=== PATIENT | male | born 1965 | race Caucasian/White ===

== ENCOUNTER → 2017-02-14 | Outpatient (CLI) | payer BC ==
--- NOTE | ~2017-02-14 | CT57 ---
[facility] A Service of [facility] RADIOLOGY TEXT RESULTS PATIENT: RESHMA LOAIZA LOCATION: [facility] : 67 UNIT #: [id number] AGE: [address]: Sukumar Perla MD SEX: M ORDER DR: [id number] [facility] [address] [place], [place] [address] [id number] O MR#: [id number] Acc #: [id number] NAME: RESHMA LOAIZA : 1965 SEX: M STUDY DATE/TIME: 02/14/2017 08:59 UNIT: [facility] ROOM: STUDY DESCRIPTION: CT Chest Wo Cont Attending Physician: Sukumar Perla M.D. Referring Physician: Sukumar Perla M.D. Ordering Physician: Sukumar Perla M.D. Primary Care Physician: Sukumar Perla M.D. MEDICAL IMAGING REPORT This report is preliminary unless electronic signature is present EXAM CT chest without contrast 02/14/2017 0859 hours CLINICAL HISTORY 51-year-old man with diagnosis of sarcoidosis made of biopsy of several years ago. FOLLOWUP Pulmonary changes of sarcoidosis. No new chest complaints today. COMPARISON 08/21/2009 CT scan of the chest. TECHNIQUE Helical noncontrasted images were obtained from the thoracic inlet through the adrenal glands. Sagittal and coronal reconstructions were performed. Total exam DLP 570 mGy-cm. This CT exam was performed with one or more of the following radiation dose reduction techniques: Automatic exposure control, adjustment of mA and/or kV according to patient size, and iterative reconstruction. FINDINGS Images through the thoracic inlet demonstrate no thyroid lesion or supraclavicular adenopathy. Images through the chest demonstrate fusiform aneurysmal dilatation of the ascending aorta measuring up to 4.7 cm previously 4.1 cm 08/21/2009. There is no pathologic, mediastinal, hilar, or axillary adenopathy. The lungs demonstrate nonspecific linear areas of scarring in the upper lobes, mid lung region, and lung bases. These areas are significantly improved over 08/21/2009 where there were nodular spiculated areas associated. The findings would be consistent with the diagnosis of STS. [facility] A Service of [facility] RADIOLOGY TEXT RESULTS PATIENT: RESHMA LOAIZA LOCATION: [facility] [place] : 67 UNIT #: [id number] AGE: [address]: Sukumar Perla MD SEX: M ORDER DR: sarcoidosis demonstrating improvement in the parenchymal changes since 2009. There is no definite new pulmonary parenchymal density or suspicious nodule. Limited views through the upper abdomen demonstrate a normal appearance to the visualized portions of the liver, spleen and pancreas. The adrenal glands are normal. IMPRESSION 1. There is fusiform aneurysmal dilatation of the ascending aorta measuring up to 4.9 cm increased from 4.1 cm on 08/21/2009. 2. There is no pathologic adenopathy. 3. There is significant interval improvement in the pulmonary parenchymal changes of sarcoidosis with some areas of linear scarring at the previous nodular and spiculated area seen in 2009. There is no evidence of new or developing density. There are no effusions. 4. Limited views through the upper abdomen are negative. Dictated by... Nanette Rogers M.D. THIS IS AN ELECTRONICALLY VERIFIED REPORT Nanette Rogers M.D. at 02/15/2017 9:10 AM [facility]/winter TD: 02/14/2017 15:47 JOB #: [id number] MEDICAL IMAGING REPORT Page 1 of 1 COPY
== END | disposition home or self-care (01) ==
LOC: CCAT 08:36
DX: D86.9 Sarcoidosis, unspecified (principal); I71.2 Thoracic aortic aneurysm, without rupture
CPT/HCPCS: 71250